=== PATIENT | female | born 1985 | race Two or more races ===

== ENCOUNTER 2019-12-29 20:15 | Observation (INO) | payer SELFPAY ==
[~2019-12-29] VITALS: Ht 160 cm; Wt 83.0 kg
[2020-01-04] MEDS ORDERED: PREN-96 PO (11:55)
== END 2019-12-29 21:30 | disposition home or self-care (01) | DRG 833 ==
LOC: LDRP 20:15
PROVIDERS: ADMIT Obstetrics & Gynecology; ATTEND Obstetrics & Gynecology
DX: O62.9 Abnormality of forces of labor, unspecified (principal); Z3A.39 39 weeks gestation of pregnancy
CPT/HCPCS: 59025; 81002; G0378